=== PATIENT | female | born 2000 | race Caucasian/White ===

== ENCOUNTER 2019-04-22 16:25 | Emergency (ER) | payer SELFPAY ==
[2019-04-22 16:32] VITALS: BP 121/86
[2019-04-22] MEDS ORDERED: OXYCODONE-ACETAMINOPHEN 5-325 MG TABLET PO ONE (16:55)
--- NOTE | 2019-04-22 16:57 | ER Document Report ---
ED Medical Screen (RME) - General Chief Complaint: Cyst Stated Complaint: ABSCESS/VAGINAL AREA Time Seen by Provider: 04/22/19 16:53 Primary Care Provider: RADHA HILL [Primary Care Provider] - Follow up as needed Mode of Arrival: Ambulatory Information source: Patient Notes: 19-year-old female patient with possible Bartholin's cyst. She states that this has been present for approximately 2 days. She states she has had a similar incident when she was about 12 years old that required drainage. Exam deferred until patient in the room. I have greeted and performed a rapid initial assessment of this patient. A comprehensive ED assessment and evaluation of the patient, analysis of test results and completion of the medical decision making process will be conducted by additional ED providers. I have specifically instructed the patient or family members with the patient to immediately return to any nursing staff should anything change in the patient's condition or with their chief complaint. TRAVEL OUTSIDE OF THE [place] IN LAST 30 DAYS: No - Related Data Allergies/Adverse Reactions: Penicillins Allergy (Verified 04/22/19 16:46) Physical Exam - Vital signs Vitals: Temp Pulse Resp BP Pulse Ox 97.9 F 86 16 121/86 H 99 04/22/19 16:30 04/22/19 16:30 04/22/19 16:30 04/22/19 16:30 04/22/19 16:30 Course - Vital Signs Vital signs: Temp Pulse Resp BP Pulse Ox 97.9 F 86 16 121/86 H 99 04/22/19 16:30 04/22/19 16:30 04/22/19 16:30 04/22/19 16:30 04/22/19 16:30 Doctor's Discharge - Discharge Referrals: RADHA HILL [Primary Care Provider] - Follow up as needed
--- NOTE | 2019-04-22 18:44 | ER Document Report ---
ED General - General Chief Complaint: Cyst Stated Complaint: ABSCESS/VAGINAL AREA Time Seen by Provider: 04/22/19 16:53 Primary Care Provider: RADHA HILL [NO LOCAL MD] - Follow up as needed Mode of Arrival: Ambulatory Notes: Patient is a 19-year-old female with a past medical history of a right sided Bartholin's gland abscess formation who presents to the emergency department with a chief complaint of the same that began 2 days ago. She reports it being painful. States today it began to drain a brown discharge. She admits to feeling feverish but has not recorded any fever. Denies any nausea vomiting or diarrhea. Denies any new sexual partners or overt vaginal discharge. TRAVEL OUTSIDE OF THE [place] IN LAST 30 DAYS: No - Related Data Allergies/Adverse Reactions: Penicillins Allergy (Verified 04/22/19 16:46) Past Medical History - General Information source: Patient - Social History Smoking Status: Current Some Day Smoker Family History: None Patient has suicidal ideation: No Patient has homicidal ideation: No Review of Systems - Review of Systems Female Genitourinary: Other - Vaginal pain -: Yes All other systems reviewed and negative Physical Exam - Vital signs Vitals: Temp Pulse Resp BP Pulse Ox 97.9 F 86 16 121/86 H 99 04/22/19 16:30 04/22/19 16:30 04/22/19 16:30 04/22/19 16:30 04/22/19 16:30 - General General appearance: Appears well, Alert In distress: None - Respiratory Respiratory status: No respiratory distress Chest status: Nontender Breath sounds: Normal Chest palpation: Normal - Cardiovascular Rhythm: Regular Heart sounds: Normal auscultation - Abdominal Inspection: Normal Distension: No distension Bowel sounds: Normal Tenderness: Nontender Organomegaly: No organomegaly - Genitourinary External exam: Other - Right sided inferior labia minora Bartholin's gland abscess formation, open and draining a copious brown discharge. Area tender to palpation. - Neurological Neuro grossly intact: Yes Cognition: Normal Orientation: AAOx4 Colton Coma Scale Eye Opening: Spontaneous [place] Coma Scale Verbal: Oriented [place] Coma Scale Motor: Obeys Commands Col[place] Coma Scale Total: 15 Speech: Normal - Psychological Associated symptoms: Normal affect, Normal mood - Skin Skin Temperature: Warm Skin Moisture: Dry Skin Color: Normal Course - Re-evaluation Re-evalutation: 04/22/19 18:42 Obvious Bartholin's gland abscess to the right side. Open and draining. Encouraged sitz baths. Will be given a course of pain medications and Bactrim. She has an appointment tomorrow with a water restoration technician for further evaluation and management. Advised she return here or any ER immediately with any new, persistent or worsening symptoms. She verbalized understood and agreed. - Vital Signs Vital signs: Temp Pulse Resp BP Pulse Ox 97.9 F 86 16 121/86 H 99 04/22/19 16:30 04/22/19 16:30 04/22/19 16:30 04/22/19 16:30 04/22/19 16:30 Discharge - Discharge Clinical Impression: Bartholin's gland abscess Condition: Stable Disposition: HOME, SELF-CARE Instructions: Abscess ([facility]), Trimethoprim-Sulfa ([facility]) Additional Instructions: Follow-up with your water restoration technician tomorrow as scheduled. Return here or any ER immediately with any new, persistent or worsening symptoms. Prescriptions: Sulfamethoxazole/Trimethoprim [Bactrim Ds Tablet] 1 each PO BID #20 tablet Hydrocodone/Acetaminophen [Greer 5-325 mg Tablet] 1 tab PO Q6 PRN #12 tablet PRN Reason: Referrals: LOCALMD,NO [NO LOCAL MD] - Follow up as needed
== END 2019-04-22 18:58 | disposition home or self-care (01) ==
LOC: ER 16:25
DX: N75.1 Abscess of Bartholin's gland (principal); F17.200 Nicotine dependence, unspecified, uncomplicated; Z88.0 Allergy status to penicillin
CPT/HCPCS: 99282